=== PATIENT | male | born 1955 | race Caucasian/White ===

== ENCOUNTER 2022-04-02 09:46 | Emergency (ER) | payer MEDICARE, BC, OTHER ==
[~2022-04-02] VITALS: Ht 180.3 cm; Wt 117.0 kg
[2022-04-02] MEDS ORDERED: XARELTO (10:04)
[2022-04-02] MEDS ORDERED: ASPIRIN 81 LOW81 MG (10:05)
[2022-04-02] MEDS ORDERED: OMNICEF300 MG PO (10:07)
[2022-04-02 10:40] VITALS: BP 125/64
== END 2022-04-02 10:45 | disposition home or self-care (01) ==
LOC: ED 09:46
DX: S50.312A Abrasion of left elbow, initial encounter (principal); S80.212A Abrasion, left knee, initial encounter; I48.91 Unspecified atrial fibrillation; V18.0XXA Pedal cycle driver injured in noncollision transport accident in nontraffic accident, initial encounter; Y93.55 Activity, bike riding; Y92.009 Unspecified place in unspecified non-institutional (private) residence as the place of occurrence of the external cause